=== PATIENT | male | born 1970 | race Caucasian/White ===

== ENCOUNTER → 2023-12-15 10:45 | Outpatient (REF) | payer SELFPAY | LOC: CLAB 10:45 | PROVIDERS: ATTENDING PHYSICIAN Specialist | DX: N62 Hypertrophy of breast (principal) | CPT/HCPCS: 88305 ==

== ENCOUNTER → 2024-03-08 08:01 | Outpatient (REF) | payer BC, SELFPAY | LOC: RAD 08:01 | PROVIDERS: ATTENDING PHYSICIAN Family Medicine | DX: R19.04 Left lower quadrant abdominal swelling, mass and lump (principal) | CPT/HCPCS: 74178; Q9967 ==